=== PATIENT | male | born 1935 | race Caucasian/White ===

== ENCOUNTER 2018-12-29 17:20 | Inpatient (IN) ==
[2018-12-29] MEDS ORDERED: Isovue-370 500 ML BOTTLE IVP ONE ×2 (18:07→18:41)
[2018-12-29 19:02] LABS: Bilirubin,Urine Small (Negative); Blood,Urine Negative (Negative); Clarity,Urine Clear (Clear); Color,Urine Yellow (Yellow); Glucose,Urine (UA) 250 mg/dL (Normal); Ketones,Urine 40 mg/dL (Negative); Leukocyte Esterase,Urine Negative (Negative); Nitrite,Urine Negative (Negative); PH,Urine 5.5 pH Units (5.0-8.0); Protein,Urine Trace mg/dL (Neg-Trace); Specific Gravity,Urine 1.029 (1.010-1.025); Urobilinogen,Urine Normal (Normal)
[2018-12-29 19:06] LABS: Basophils # 0.1 K/mcL (0.0-0.2); Basophils % 0.6 %; Eosinophils # 0.1 K/mcL (0.0-0.6); Eosinophils % 1.3 %; Hematocrit 38.5 % (37.5-50.1); Hemoglobin 13.4 g/dL (12.9-16.9); Immature Granulocytes % 1.8 % (0-4); Lymphocytes # 1.7 K/mcL (0.6-4.6); Lymphocytes % 16.9 %; Mean Corpuscular HGB Conc 34.8 g/dL (31.6-35.5); Mean Corpuscular Hemoglobin 30.5 pg (28.0-33.3); Mean Corpuscular Volume 87.7 fL (83.0-100.0); Mean Platelet Volume 10.8 fL (9.4-12.4); Monocytes # 0.6 K/mcL (0.0-1.3); Neutrophils # 7.4 K/mcL (1.6-8.9); Platelet Count 366 K/mcL (140-400); Red Blood Count 4.39 M/mcL (4.19-5.50); Red Cell Distribution Width 13.9 % (11.5-14.5); Segmented Neutrophils % 73.4 %
[2018-12-29] MEDS ORDERED: 0.9 % Sodium Chloride 1,000 ML IVC STA ×2 (19:12→20:54)
[2018-12-29 19:16] LABS: INR 0.9; Prothrombin Time 10.6 Seconds (9.4-12.1)
[2018-12-29] MEDS ORDERED: Ondansetron ODT 4 MG TAB.RAPDIS SL ONE (19:16)
[2018-12-29 19:19] LABS: Activated Partial Thrombo Time 30.3 Seconds (26.0-36.0)
[2018-12-29 19:24] LABS: Alanine Aminotransferase 41 Units/L (7-52); Albumin 3.6 g/dL (3.5-5.7); Albumin/Globulin Ratio 1.6 (1.1-2.2); Alkaline Phosphatase 81 Units/L (34-104); Aspartate Amino Transferase 21 Units/L (13-39); BUN/Creatinine Ratio 28 (6-26); Bilirubin,Direct 0.1 mg/dL (0.0-0.2); Bilirubin,Indirect 0.3 mg/dL (0.0-1.2); Bilirubin,Total 0.4 mg/dL (0.3-1.0); Blood Urea Nitrogen 35 mg/dL (8-23); Calcium 9.8 mg/dL (8.6-10.3); Carbon Dioxide 22 mEq/L (23-29); Chloride 103 mEq/L (98-107); Globulin 2.3 g/dL (2.4-3.5); Glucose 308 mg/dL (70-105); Lipase 16 Units/L (11-82); Osmolality,Calculated 308 (280-300); Potassium 4.2 mEq/L (3.5-5.1); Sodium 139 mEq/L (136-145); Total Protein 5.9 g/dL (6.4-8.9); Troponin I < 0.03 ng/mL (< 0.04); eGFR For African Americans > 60 (> 60); eGFR For Non-African Americans 55 (> 60)
[2018-12-29] MEDS ORDERED: *HR* FentaNYL (PF) 100 MCG/2 ML VIAL IVP ONE (20:54)
[2018-12-29 21:22] LABS: VBG HCO3 21 mEq/L (21-27); VBG PCO2 33 mmHg (41-51); VBG PH 7.41 pH Units (7.32-7.42); VBG PO2 55 mmHg (25-50)
[2018-12-30] MEDS ORDERED: Naloxone 0.4 MG/ML INJ IVP PRN (00:57)
[2018-12-30] MEDS ORDERED: Ketorolac 15 MG/ML VIAL IVP ONE ×2 (01:02→01:15)
[2018-12-30] MEDS ORDERED: D5% in Water 1,000 ML IVC PRN (01:22)
[2018-12-30] MEDS ORDERED: Dextrose Gel 15 GM/37.5 ML TUBE PO PRN ×2 (01:22)
[2018-12-30] MEDS ORDERED: *HR* Dextrose 50 % in Water (Syg) 50 ML SYRINGE IVP PRN (01:22)
[2018-12-30] MEDS: 0.9 % Sodium Chloride 1,000 ML IVC SCH ×3 (01:29→20:05)
[2018-12-30 01:51] LABS: Basophils % 0.4 %; Eosinophils # 0.1 K/mcL (0.0-0.6); Eosinophils % 1.3 %; Hemoglobin 12.8 g/dL (12.9-16.9); Immature Granulocytes % 0.7 % (0-4); Lymphocytes # 1.2 K/mcL (0.6-4.6); Lymphocytes % 11.5 %; Mean Corpuscular HGB Conc 34.6 g/dL (31.6-35.5); Mean Corpuscular Hemoglobin 30.9 pg (28.0-33.3); Mean Corpuscular Volume 89.4 fL (83.0-100.0); Mean Platelet Volume 11.6 fL (9.4-12.4); Monocytes # 0.7 K/mcL (0.0-1.3); Monocytes % 6.5 %; Platelet Count 320 K/mcL (140-400); Red Blood Count 4.14 M/mcL (4.19-5.50); Red Cell Distribution Width 14.1 % (11.5-14.5); Segmented Neutrophils % 79.6 %
[2018-12-30 01:57] LABS: Estimated Average Glucose 220 mg/dl
[2018-12-30 02:06] LABS: Alanine Aminotransferase 37 Units/L (7-52); Albumin 3.1 g/dL (3.5-5.7); Albumin/Globulin Ratio 1.3 (1.1-2.2); Alkaline Phosphatase 73 Units/L (34-104); Aspartate Amino Transferase 19 Units/L (13-39); BUN/Creatinine Ratio 29 (6-26); Bilirubin,Total 0.4 mg/dL (0.3-1.0); Blood Urea Nitrogen 32 mg/dL (8-23); Calcium 8.5 mg/dL (8.6-10.3); Carbon Dioxide 22 mEq/L (23-29); Chloride 109 mEq/L (98-107); Chol/HDL Ratio 2.9 (0-4.9); Cholesterol 101 mg/dL (< 200); Globulin 2.3 g/dL (2.4-3.5); Glucose 244 mg/dL (70-105); HDL Cholesterol 35 mg/dL (40-59); LDL Cholesterol,Calculated 38 mg/dL (0-99); Magnesium 1.8 mg/dL (1.6-2.6); Osmolality,Calculated 303 (280-300); Phosphorous 3.4 mg/dL (2.7-4.5); Potassium 3.7 mEq/L (3.5-5.1); Sodium 139 mEq/L (136-145); Total Protein 5.4 g/dL (6.4-8.9); Triglycerides 139 mg/dL (< 150); eGFR For African Americans > 60 (> 60); eGFR For Non-African Americans > 60 (> 60)
[2018-12-30 05:26] LABS: INR 0.9; Prothrombin Time 10.1 Seconds (9.4-12.1)
[2018-12-30 05:28] LABS: Activated Partial Thrombo Time 30.2 Seconds (26.0-36.0)
[2018-12-30] MEDS: Insulin LISPRO 300 UNITS/3 ML VIAL SQ SCH ×3 (08:35→17:24)
[2018-12-30] MEDS ORDERED: Insulin LISPRO 300 UNITS/3 ML VIAL SQ SCH (21:00)
[2018-12-31] MEDS ORDERED: Chloraseptic Spray 177 ML BOTTLE MM PRN (03:47)
[2018-12-31 04:58] LABS: Basophils # 0.1 K/mcL (0.0-0.2); Basophils % 0.5 %; Eosinophils # 0.3 K/mcL (0.0-0.6); Eosinophils % 2.3 %; Hematocrit 35.8 % (37.5-50.1); Hemoglobin 12.1 g/dL (12.9-16.9); Immature Granulocytes % 0.9 % (0-4); Lymphocytes # 1.2 K/mcL (0.6-4.6); Lymphocytes % 9.7 %; Mean Corpuscular HGB Conc 33.8 g/dL (31.6-35.5); Mean Corpuscular Hemoglobin 30.6 pg (28.0-33.3); Mean Corpuscular Volume 90.6 fL (83.0-100.0); Mean Platelet Volume 11.1 fL (9.4-12.4); Monocytes # 0.8 K/mcL (0.0-1.3); Monocytes % 6.6 %; Neutrophils # 10.2 K/mcL (1.6-8.9); Platelet Count 313 K/mcL (140-400); Red Blood Count 3.95 M/mcL (4.19-5.50); Red Cell Distribution Width 14.3 % (11.5-14.5); White Blood Count 12.8 K/mcL (4.3-11.1)
[2018-12-31 05:16] LABS: Alanine Aminotransferase 50 Units/L (7-52); Albumin 2.8 g/dL (3.5-5.7); Albumin/Globulin Ratio 1.4 (1.1-2.2); Alkaline Phosphatase 74 Units/L (34-104); Aspartate Amino Transferase 35 Units/L (13-39); BUN/Creatinine Ratio 24 (6-26); Bilirubin,Total 0.4 mg/dL (0.3-1.0); Blood Urea Nitrogen 25 mg/dL (8-23); Calcium 7.8 mg/dL (8.6-10.3); Carbon Dioxide 16 mEq/L (23-29); Chloride 111 mEq/L (98-107); Glucose 178 mg/dL (70-105); Osmolality,Calculated 297 (280-300); Sodium 139 mEq/L (136-145); Total Protein 4.8 g/dL (6.4-8.9); eGFR For African Americans > 60 (> 60); eGFR For Non-African Americans > 60 (> 60)
[2018-12-31] MEDS: 0.9 % Sodium Chloride 1,000 ML IVC SCH ×2 (06:51→20:33)
[2018-12-31] MEDS: Ondansetron 4 MG/2 ML VIAL IVP PRN ×2 (09:52→19:16)
[2018-12-31] MEDS: Metoclopramide 10 MG/2 ML VIAL IVP PRN (15:43)
[2018-12-31] MEDS: Insulin LISPRO 300 UNITS/3 ML VIAL SQ SCH ×2 (15:48→15:49)
[2019-01-01] MEDS: Insulin LISPRO 300 UNITS/3 ML VIAL SQ SCH ×6 (00:25→19:14)
[2019-01-01] MEDS: Metoclopramide 10 MG/2 ML VIAL IVP PRN (00:25)
[2019-01-01 05:24] LABS: Basophils # 0.1 K/mcL (0.0-0.2); Basophils % 0.3 %; Hematocrit 34.6 % (37.5-50.1); Hemoglobin 11.5 g/dL (12.9-16.9); Immature Granulocytes % 1.5 % (0-4); Lymphocytes # 0.8 K/mcL (0.6-4.6); Lymphocytes % 5.3 %; Mean Corpuscular HGB Conc 33.2 g/dL (31.6-35.5); Mean Corpuscular Hemoglobin 30.5 pg (28.0-33.3); Mean Corpuscular Volume 91.8 fL (83.0-100.0); Mean Platelet Volume 10.4 fL (9.4-12.4); Monocytes # 1.1 K/mcL (0.0-1.3); Monocytes % 7.1 %; Neutrophils # 12.7 K/mcL (1.6-8.9); Platelet Count 324 K/mcL (140-400); Red Blood Count 3.77 M/mcL (4.19-5.50); Red Cell Distribution Width 14.8 % (11.5-14.5); Segmented Neutrophils % 85.8 %; White Blood Count 14.8 K/mcL (4.3-11.1)
[2019-01-01 05:44] LABS: BUN/Creatinine Ratio 21 (6-26); Blood Urea Nitrogen 28 mg/dL (8-23); Carbon Dioxide 14 mEq/L (23-29); Chloride 115 mEq/L (98-107); Potassium 3.7 mEq/L (3.5-5.1); Sodium 145 mEq/L (136-145); eGFR For African Americans > 60 (> 60)
[2019-01-01 05:45] LABS: Calcium 7.9 mg/dL (8.6-10.3); Glucose 196 mg/dL (70-105); Osmolality,Calculated 311 (280-300); eGFR For Non-African Americans 51 (> 60)
[2019-01-01] MEDS: 0.9 % Sodium Chloride 1,000 ML IVC SCH ×2 (06:39→17:06)
[2019-01-01] MEDS: Pantoprazole 40 MG VIAL IVP SCH (17:00)
[2019-01-01] MEDS ORDERED: Insulin LISPRO 300 UNITS/3 ML VIAL SQ SCH (21:00)
[2019-01-01] MEDS ORDERED: *HR* HYDROcodone/Acet 5/325 mg TABLET PO ONE (21:34)
[2019-01-02] MEDS: 0.9 % Sodium Chloride 1,000 ML IVC SCH ×3 (04:34→16:47)
[2019-01-02] MEDS: Ondansetron 4 MG/2 ML VIAL IVP PRN (07:38)
[2019-01-02] MEDS: Pantoprazole 40 MG VIAL IVP SCH (07:38)
[2019-01-02] MEDS: Insulin LISPRO 300 UNITS/3 ML VIAL SQ SCH ×2 (07:39→11:33)
[2019-01-02 09:15] LABS: Basophils % 0.3 %; Eosinophils # 0.2 K/mcL (0.0-0.6); Eosinophils % 1.4 %; Hematocrit 34.4 % (37.5-50.1); Hemoglobin 11.3 g/dL (12.9-16.9); Immature Granulocytes % 0.7 % (0-4); Lymphocytes # 0.8 K/mcL (0.6-4.6); Lymphocytes % 7.5 %; Mean Corpuscular HGB Conc 32.8 g/dL (31.6-35.5); Mean Corpuscular Hemoglobin 30.5 pg (28.0-33.3); Mean Corpuscular Volume 92.7 fL (83.0-100.0); Mean Platelet Volume 10.6 fL (9.4-12.4); Monocytes # 0.6 K/mcL (0.0-1.3); Monocytes % 5.4 %; Neutrophils # 8.9 K/mcL (1.6-8.9); Platelet Count 315 K/mcL (140-400); Red Blood Count 3.71 M/mcL (4.19-5.50); Segmented Neutrophils % 84.7 %; White Blood Count 10.5 K/mcL (4.3-11.1)
[2019-01-02 09:34] LABS: BUN/Creatinine Ratio 17 (6-26); Blood Urea Nitrogen 20 mg/dL (8-23); Carbon Dioxide 17 mEq/L (23-29); Chloride 115 mEq/L (98-107); Glucose 189 mg/dL (70-105); Osmolality,Calculated 306 (280-300); Potassium 3.1 mEq/L (3.5-5.1); Sodium 144 mEq/L (136-145); eGFR For African Americans > 60 (> 60); eGFR For Non-African Americans > 60 (> 60)
[2019-01-02] MEDS ORDERED: *HR* Rocuronium Bromide 50 MG/5 ML VIAL ONE (13:06)
[2019-01-02] MEDS ORDERED: *HR* Propofol 200 MG/20 ML VIAL IVP ONE (13:06)
[2019-01-02] MEDS ORDERED: Lidocaine -MPF 2% 2 ML VIAL ONE (13:06)
[2019-01-02] MEDS ORDERED: Ondansetron 4 MG/2 ML VIAL ONE (13:06)
[2019-01-02] MEDS ORDERED: Dexamethasone 4 MG/ML VIAL ONE (13:06)
[2019-01-02] MEDS ORDERED: *HR* Succinylcholine 200 MG/10 ML VIAL IVP ONE (13:06)
[2019-01-02] MEDS ORDERED: *HR* FentaNYL (PF) 100 MCG/2 ML VIAL ONE (13:06)
[2019-01-02] MEDS ORDERED: *HR* HYDROmorphone (PF) 1 MG/ML SYRINGE IVP PRN (13:12)
[2019-01-02] MEDS ORDERED: Albuterol 2.5 MG/3 ML NEBULIZER IH ONE ×2 (13:12→16:12)
[2019-01-02] MEDS ORDERED: *HR* Promethazine 25 MG/ML VIAL IVP PRN (13:12)
[2019-01-02] MEDS ORDERED: *HR* Labetalol 20 MG/4 ML SYRINGE IVP PRN (13:12)
[2019-01-02] MEDS ORDERED: Ondansetron 4 MG/2 ML VIAL IVP ONE (13:12)
[2019-01-02] MEDS ORDERED: *HR* OxyCODONE Immed Rel 5 MG TABLET PO PRN ×2 (13:12→16:12)
[2019-01-02] MEDS ORDERED: Acetaminophen IV 1,000 MG/100 ML INFUS..BTL IVPB ONE (13:12)
[2019-01-02] MEDS ORDERED: CefOXitin 1,000 MG VIAL ONE (13:41)
[2019-01-02] MEDS ORDERED: Calcium Gluconate 1,000 MG/10 ML VIAL ONE (14:09)
[2019-01-02] MEDS ORDERED: ceFAZolin 2,000 MG in Water for inj. (sterile) 20 ML IVP ONE (14:13)
[2019-01-02] MEDS ORDERED: *HR* HYDROMORPHONE 2 MG/ML VIAL ONE (14:34)
[2019-01-02] MEDS ORDERED: *HR* Metoprolol 5 MG/5 ML VIAL IVP ONE ×2 (14:37→14:48)
[2019-01-02] MEDS ORDERED: Acetaminophen IV 1,000 MG/100 ML INFUS..BTL ONE (15:09)
[2019-01-02] MEDS ORDERED: *HR* Magnesium Sulfate 1 GM/2 ML VIAL ONE (15:12)
[2019-01-02] MEDS ORDERED: Neostigmine Methylsulfate 3 MG/3 ML SYRINGE ONE (15:12)
[2019-01-02] MEDS ORDERED: Dextrose Gel 15 GM/37.5 ML TUBE PO PRN ×2 (16:12)
[2019-01-02] MEDS ORDERED: D5% in Water 1,000 ML IVC PRN (16:12)
[2019-01-02] MEDS ORDERED: *HR* Metoprolol 5 MG/5 ML VIAL IVP PRN (16:12)
[2019-01-02] MEDS ORDERED: Naloxone 0.4 MG/ML INJ IVP PRN (16:12)
[2019-01-02] MEDS ORDERED: Ondansetron 4 MG/2 ML VIAL IVP PRN (16:12)
[2019-01-02] MEDS ORDERED: *HR* Dextrose 50 % in Water (Syg) 50 ML SYRINGE IVP PRN (16:12)
[2019-01-02] MEDS ORDERED: Chloraseptic Spray 177 ML BOTTLE MM PRN (16:12)
[2019-01-02] MEDS ORDERED: Insulin LISPRO 300 UNITS/3 ML VIAL SQ SCH ×2 (16:30→21:00)
[2019-01-03] MEDS: Insulin LISPRO 300 UNITS/3 ML VIAL SQ SCH ×4 (00:11→17:41)
[2019-01-03] MEDS: 0.9 % Sodium Chloride 1,000 ML IVC SCH ×2 (03:04→16:09)
[2019-01-03] MEDS: Pantoprazole 40 MG VIAL IVP SCH (07:27)
[2019-01-03] MEDS: Morphine Sulfate 2 MG/ML SYRINGE IVP PRN ×2 (07:27→16:07)
[2019-01-03 07:35] LABS: Basophils % 0.2 %; Hematocrit 38.2 % (37.5-50.1); Hemoglobin 12.5 g/dL (12.9-16.9); Immature Granulocytes % 0.4 % (0-4); Lymphocytes # 0.8 K/mcL (0.6-4.6); Lymphocytes % 8.5 %; Mean Corpuscular HGB Conc 32.7 g/dL (31.6-35.5); Mean Corpuscular Volume 91.6 fL (83.0-100.0); Mean Platelet Volume 11.8 fL (9.4-12.4); Monocytes # 0.8 K/mcL (0.0-1.3); Monocytes % 9.1 %; Neutrophils # 7.5 K/mcL (1.6-8.9); Platelet Count 271 K/mcL (140-400); Red Blood Count 4.17 M/mcL (4.19-5.50); Red Cell Distribution Width 15.2 % (11.5-14.5); Segmented Neutrophils % 81.8 %; White Blood Count 9.2 K/mcL (4.3-11.1)
[2019-01-03 07:52] LABS: BUN/Creatinine Ratio 16 (6-26); Blood Urea Nitrogen 18 mg/dL (8-23); Calcium 8.1 mg/dL (8.6-10.3); Carbon Dioxide 21 mEq/L (23-29); Chloride 112 mEq/L (98-107); Glucose 185 mg/dL (70-105); Osmolality,Calculated 303 (280-300); Potassium 3.6 mEq/L (3.5-5.1); Sodium 143 mEq/L (136-145); eGFR For African Americans > 60 (> 60); eGFR For Non-African Americans > 60 (> 60)
[2019-01-03] MEDS ORDERED: Potassium Chloride 40 MEQ, Lidocaine 1% 2 ML in 0.9 % Sodium Chloride 500 ML IVPB ONE (08:16)
[2019-01-04] MEDS: Insulin LISPRO 300 UNITS/3 ML VIAL SQ SCH ×2 (00:04→05:52)
[2019-01-04] MEDS: 0.9 % Sodium Chloride 1,000 ML IVC SCH (02:26)
[2019-01-04] MEDS: Morphine Sulfate 2 MG/ML SYRINGE IVP PRN (02:27)
[2019-01-04 06:59] VITALS: BP 146/72
[2019-01-04 07:00] LABS: Basophils % 0.2 %; Eosinophils # 0.2 K/mcL (0.0-0.6); Eosinophils % 1.9 %; Hematocrit 33.3 % (37.5-50.1); Hemoglobin 11.1 g/dL (12.9-16.9); Immature Granulocytes % 0.5 % (0-4); Lymphocytes # 1.2 K/mcL (0.6-4.6); Lymphocytes % 13.6 %; Mean Corpuscular HGB Conc 33.3 g/dL (31.6-35.5); Mean Platelet Volume 11.5 fL (9.4-12.4); Monocytes # 0.6 K/mcL (0.0-1.3); Monocytes % 7.2 %; Neutrophils # 6.7 K/mcL (1.6-8.9); Platelet Count 293 K/mcL (140-400); Red Blood Count 3.58 M/mcL (4.19-5.50); Red Cell Distribution Width 15.2 % (11.5-14.5); Segmented Neutrophils % 76.6 %; White Blood Count 8.8 K/mcL (4.3-11.1)
[2019-01-04 07:21] LABS: BUN/Creatinine Ratio 13 (6-26); Blood Urea Nitrogen 14 mg/dL (8-23); Calcium 7.7 mg/dL (8.6-10.3); Carbon Dioxide 18 mEq/L (23-29); Chloride 111 mEq/L (98-107); Glucose 138 mg/dL (70-105); Osmolality,Calculated 299 (280-300); Potassium 3.6 mEq/L (3.5-5.1); Sodium 143 mEq/L (136-145); eGFR For African Americans > 60 (> 60); eGFR For Non-African Americans > 60 (> 60)
[2019-01-04] MEDS: Pantoprazole 40 MG VIAL IVP SCH (08:40)
[2019-01-04] MEDS ORDERED: *HR* EPINEPHrine 1 MG/10 ML SYRINGE IVP ONE (11:44)
== END 2019-01-04 11:45 | disposition expired | DRG 330 ==
LOC: EMEROOARM 17:20 → 3ANU 17:20 → SUATTDRO 22:51 → 3ANU 23:39
PROVIDERS: ADMIT Internal Medicine Nephrology; ATTEND Family Medicine